=== PATIENT | male | born 1990 | race Caucasian/White ===

== ENCOUNTER → 2024-07-16 09:00 | Outpatient (BNVA) | payer MEDICARE, MEDICAID, SELFPAY | PROVIDERS: PCP Family Medicine; Visit Provider Urology | DX: N46.9 Male infertility, unspecified (principal) | CPT/HCPCS: 81003; 99202 ==

== ENCOUNTER 2024-08-27 16:03 | Outpatient (REF) | payer MEDICARE, MEDICAID, SELFPAY ==
--- NOTE | ~2024-08-27 | US_ITS ---
EXAMINATION: US SCROTUM HISTORY: N46.9 - Male infertility, unspecified. COMPARISONS: There are no prior studies for comparison. FINDINGS: Real-time grayscale ultrasound imaging of the scrotum was performed. RIGHT TESTICLE: The right testis measures 4.7 x 2.2 x 3.0 cm and demonstrates normal homogeneous echotexture. No masses are seen. The right testis demonstrates normal arterial and venous color Doppler and spectral waveforms. RIGHT EPIDIDYMIS: Normal in size, shape, and vascularity. LEFT TESTICLE: The left testis measures 4.9 x 2.0 x 3.3 cm and demonstrates normal homogeneous echotexture. No masses are seen. The left testis demonstrates normal arterial and venous color Doppler and spectral waveforms. LEFT EPIDIDYMIS: Normal in size, shape, and vascularity. VARICOCELE: None. HYDROCELE: Minimal hydroceles are noted bilaterally. OTHER COMMENTS: None. US/US scrotum IMPRESSION: Minimal bilateral hydroceles. Otherwise unremarkable scrotal ultrasound. Electronically signed by: Monroe Baker MD 08/28/2024 07:59 AM EDT
== END 2024-08-27 16:04 | disposition home or self-care (01) ==
LOC: HO.US 16:03
PROVIDERS: PCP Family Medicine; Visit Provider Urology
DX: N46.9 Male infertility, unspecified (principal)
CPT/HCPCS: 76870

== ENCOUNTER → 2024-08-27 16:05 | Outpatient (BNV) | payer MEDICARE, MEDICAID, SELFPAY | PROVIDERS: PCP Family Medicine; Visit Provider Radiology Diagnostic Radiology | DX: N46.9 Male infertility, unspecified (principal) | CPT/HCPCS: 76870 ==

== ENCOUNTER 2024-09-01 12:21 | Outpatient (REF) | payer MEDICARE, MEDICAID, SELFPAY ==
[2024-09-02 03:43] LABS: Follicle Stimulating Hormone 12.5 mIU/mL (1.4-12.8); Lutenizing Hormone 9.5 mIU/mL (1.5-9.3); Prolactin 3.1 ng/mL (2.0-18.0)
[2024-09-06 12:48] LABS: Testosterone, Free 97 pg/mL (35.0-155.0); Testosterone, Total 625 ng/dL (250-1100)
== END 2024-09-01 12:22 | disposition home or self-care (01) ==
LOC: HO.10HDL 12:21
PROVIDERS: Visit Provider Urology
DX: Z31.41 Encounter for fertility testing (principal); N46.9 Male infertility, unspecified
CPT/HCPCS: 36415; 83001; 83002; 84146; 84402; 84403

== ENCOUNTER 2024-09-21 14:06 | Outpatient (AMB) | payer MEDICARE, MEDICAID, SELFPAY ==
--- NOTE | 2024-09-21 14:11 | MHC.OFFVIS ---
Intake Visit Reasons: 10w/Testo Intake Note: Patient presents to office today for 10 week testosterone/US 09/01/24 Total Testo: 625 Testo Dialysis: 97 FSH: 12.5 LH: 9.5 Prolactin: 3.1 Urology Med: None Antibiotic Allergy: Amitriptyline Blood Thinner: None Avionics Test Technician Required: No Accompanied by: Self / Same As Patient Allergies amitriptyline Adverse Reaction (Mild, Verified 09/21/24 14:14) Nightmare gabapentin Allergy (Severe, Uncoded 07/16/24 09:15) Seizure HPI Comments Details: --34-year-old male presenting with concerns regarding male infertility. He has been previously informed about the semen analysis and received related details. Previous assessments, including normal testosterone and hormone levels, have shown no hormonal cause for his concerns. An ultrasound confirmed normal size and health of testicles, without signs of atrophy or varicoceles. The patient has a history of being catheterized and he inquired about prior catheterization affecting his sperm count, but was reassured this would not affect sperm count. His partner has started engaging with [facility] for further infertility counseling, but semen analysis is the next recommended step before any comprehensive infertility treatments as a couple. Results - Labs: Normal testosterone levels, normal hormonal levels. - Diagnostics: Testicular ultrasound showing normal-sized testicles, no atrophy, no varicoceles. 07/16/24--Bulmaro is a 34 year old male here as a new patient evaluation for male infertility. Discussed further evaluation to include semen analysis and lab work for testosterone, prolactin, FSH, and LH levels. Will check scrotal US. FORMERLY [facility] Medical History Varicose veins of lower extremity Tobacco user Tobacco dependence syndrome Opioid dependence in remission Chronic alcoholism in remission Bipolar disorder Recurrent major depression Mixed hyperlipidemia Uncontrolled type 1 diabetes mellitus with hyperglycemia Tinea pedis Family History Maternal Grandfather Diabetes mellitus Type 2 diabetes mellitus Sister Multinodular goiter Brother History of Chiari malformation Ankylosing spondylitis Father Myocardial infarction Social History Patient Tobacco Use Status: Former Tobacco user Review of Systems Const All systems reviewed & are unremarkable except as noted in HPI and below Reports no additional complaints Eyes Reports no additional complaints ENT Reports no additional complaints Card Reports no additional complaints Resp Reports no additional complaints GI Reports no additional complaints Reports as per HPI Musc Reports no additional complaints Skin/Breast Reports system reviewed and no additional complaints, except as documented Neuro Reports no additional complaints Psych Reports no additional complaints Endo Reports no additional complaints Antione/Lymph Reports no additional complaints Aller/Immun Reports no additional complaints Results Reviewed Results Reviewed: Date of Service: 08/27/24 EXAMINATION: US SCROTUM HISTORY: N46.9 - Male infertility, unspecified. COMPARISONS: There are no prior studies for comparison. FINDINGS: Real-time grayscale ultrasound imaging of the scrotum was performed. RIGHT TESTICLE: The right testis measures 4.7 x 2.2 x 3.0 cm and demonstrates normal homogeneous echotexture. No masses are seen. The right testis demonstrates normal arterial and venous color Doppler and spectral waveforms. RIGHT EPIDIDYMIS: Normal in size, shape, and vascularity. LEFT TESTICLE: The left testis measures 4.9 x 2.0 x 3.3 cm and demonstrates normal homogeneous echotexture. No masses are seen. The left testis demonstrates normal arterial and venous color Doppler and spectral waveforms. LEFT EPIDIDYMIS: Normal in size, shape, and vascularity. VARICOCELE: None. HYDROCELE: Minimal hydroceles are noted bilaterally. OTHER COMMENTS: None. IMPRESSION: Minimal bilateral hydroceles. Otherwise unremarkable scrotal ultrasound. Assessment & Plan Assessment & Plan (1) Male infertility: Code(s): N46.9 - Male infertility, unspecified Category: Medical Plan Reviewed lab and US results with patient Patient Instructions: The patient had an opportunity to ask questions regarding treatment plan. The patient expressed understanding and agreement with the above treatment plan. The patient is aware they should contact our office by phone for worsening of their current condition or the appearance of new symptoms. Compliance is encouraged with any medications and followup testing that is ordered. It is a privilege to be allowed the opportunity to participate in the urologic care of your patient. If you have any questions or concerns regarding treatment for the above conditions please do not hesitate to contact me. The office telephone contact is [phone]. This note is constructed in part using voice recognition software. While every effort has been made to ensure accuracy program director group work errors may have been included. Yours sincerely, Ca Grande MD Coding Level of Care Code Est Pt Level 3 (66483) Diagnoses Male infertility N46.9
== END 2024-09-21 14:39 | disposition home or self-care (01) ==
LOC: HO.HUSH 14:06
PROVIDERS: PCP Family Medicine; Visit Provider Urology
DX: N46.9 Male infertility, unspecified (principal)
CPT/HCPCS: 99213

== ENCOUNTER → 2024-09-21 14:06 | Outpatient (BNVA) | payer MEDICARE, MEDICAID, SELFPAY | PROVIDERS: PCP Family Medicine; Visit Provider Urology | DX: N46.9 Male infertility, unspecified (principal) | CPT/HCPCS: 99212 ==

== ENCOUNTER 2025-02-02 08:30 | Outpatient (AMB) | payer MEDICARE, MEDICAID, SELFPAY ==
--- NOTE | 2025-02-02 08:30 | A.OFFVIS_ITS ---
Intake Visit Reasons: Male infertility (last seen by Marg[facility]) Intake Note: Patient presents to office today for: follow up Urology Med: None Blood Thinner: None Electrical Instrument Technician Required: No Medical Orderly: Medical Orderly Present Accompanied by: Self / Same As Patient Allergies amitriptyline Adverse Reaction (Mild, Verified 02/02/25 08:32) Nightmare gabapentin Allergy (Severe, Uncoded 02/02/25 08:32) Seizure HPI Comments Details: 02/01 - Bulmaro is a pleasant male. He is a patient of Dr. Cole. He is seen for the following urologic conditions - male infertility Normal imaging Normal baseline hormone Has not completed semen analysis Has background type 1 diabetic for many years and significant psych history on multiple medications. All of them are associated with retrograde ejaculation. Emphasize need to perform post ejaculatory urinalysis He will Trial Sudafed for bladder neck tightening If unsuccessful recommend assessment with [facility] infertility lab. --34-year-old male presenting with concerns regarding male infertility. He has been previously informed about the semen analysis and received related details. Previous assessments, including normal testosterone and hormone levels, have shown no hormonal cause for his concerns. An ultrasound confirmed normal size and health of testicles, without signs of atrophy or varicoceles. The patient has a history of being catheterized and he inquired about prior catheterization affecting his sperm count, but was reassured this would not affect sperm count. His partner has started engaging with [facility] for further infertility counseling, but semen analysis is the next recommended step before any comprehensive infertility treatments as a couple. Results - Labs: Normal testosterone levels, normal hormonal levels. - Diagnostics: Testicular ultrasound showing normal-sized testicles, no atrophy, no varicoceles. - FSH 12.5, LH 9.5, testosterone 625 07/16/24--Bulmaro is a 34 year old male here as a new patient evaluation for male infertility. Discussed further evaluation to include semen analysis and lab work for testosterone, prolactin, FSH, and LH levels. Will check scrotal US. [facility]LY [facility] Medical History Varicose veins of lower extremity Tobacco user Tobacco dependence syndrome Opioid dependence in remission Chronic alcoholism in remission Bipolar disorder Recurrent major depression Mixed hyperlipidemia Uncontrolled type 1 diabetes mellitus with hyperglycemia Tinea pedis Family History Maternal Grandfather Diabetes mellitus Type 2 diabetes mellitus Sister Multinodular goiter Brother History of Chiari malformation Ankylosing spondylitis Father Myocardial infarction Social History Patient Tobacco Use Status: Former Tobacco user Review of Systems Const Denies chills and Denies fever(s) Card Reports no additional complaints and Denies syncope Resp Denies cough GI Denies abdominal pain and Denies heartburn Reports as per HPI and Denies change in libido Neuro Denies syncope Psych Denies change in libido Endo Denies change in libido Physical Exam Const General: cooperative, healthy appearing, comfortable and no acute distress Orientation/consciousness: patient oriented x3 HEENT Face and sinus: Yes normal facial exam Mouth: moist mucous membranes Neck Neck: Yes normal visual inspection, Yes full ROM and Yes trachea midline Chest Chest palpation & inspection: normal inspection of the chest Resp Effort & Inspection: normal respiratory effort, able to speak in complete sentences and no respiratory distress GI Inspection: Yes normal to inspection Back/Spine/Pelvis Cervical Spine: normal cervical lordosis Thoracic/Lumbar Spine: thoracic and lumbar spine normal to inspection Skin General skin exam: no rashes or lesions noted Neuro General: patient oriented x3, gait normal, tone normal and moves all extremities Extrem General: Yes normal to inspection and Yes capillary refill normal Assessment & Plan Assessment & Plan (1) Male infertility: Code(s): N46.9 - Male infertility, unspecified Category: Medical Plan Six-month follow-up Patient Instructions: This note is constructed using voice recognition software. While every effort has been made to ensure accuracy preschool assistant director errors may have been included. Imaging studies, laboratory and physical exam results were discussed and reviewed in detail. No major barriers to patient understanding were identified. An opportunity to ask questions regarding the treatment plan was provided. All questions were answered. The patient expressed understanding and agreement with the above treatment plan. The patient is aware they should contact our office by phone for worsening of their current condition or the appearance of new urologic symptoms. Compliance is encouraged with any medications and followup testing that is ordered. It is a privilege to participate in the urologic care of your patient. If you have any questions or concerns regarding treatment for the above conditions, or other urologic issues, please do not hesitate to contact me. The office telephone contact is [phone]. Sincerely, Dr Calvin Ross MD, [facility] - Urology Compassionate Specialist Care for the Genitourinary System Coding Level of Care Code Est Pt Level 3 (25447) Complex EM visit Add On G2211 Diagnoses Male infertility N46.9
== END 2025-02-02 09:20 | disposition home or self-care (01) ==
LOC: HO.HUSH 08:31
PROVIDERS: PCP Family Medicine; Visit Provider Urology
DX: N46.9 Male infertility, unspecified (principal)
CPT/HCPCS: 99213; G2211

== ENCOUNTER → 2025-02-02 08:30 | Outpatient (BNVA) | payer MEDICARE, MEDICAID, SELFPAY | PROVIDERS: PCP Family Medicine; Visit Provider Urology | DX: N46.9 Male infertility, unspecified (principal) | CPT/HCPCS: 99212 ==